=== PATIENT | female | born 1960 | race Caucasian/White ===

== ENCOUNTER 2021-01-14 08:07 | Outpatient (CLI) | payer SELFPAY ==
[2021-01-14] VITALS (8 sets, daily range): BP systolic 97–112; BP diastolic 57–73; PULSE 66–93; RESP 16–18; TEMP 36.7–37.1; O2SAT 91–95
== END 2021-01-14 10:40 | disposition home or self-care (01) ==
PROVIDERS: PCP Nurse Practitioner Family; Visit Provider Nurse Practitioner Family
DX: U07.1 COVID-19 (principal)
CPT/HCPCS: 96365

== ENCOUNTER → 2022-10-25 12:09 | Outpatient (CLI) | payer SELFPAY ==
--- NOTE | 2022-10-25 12:31 | XR_ITS ---
FINAL REPORT CLINICAL HISTORY: LT upper ARM PAIN. injury on sunday, fall tried to catch herself. COMPARISON: None FINDINGS: Two views of the left humerus were obtained. There is no acute fracture or dislocation. There is mild AC joint and mild glenohumeral joint degenerative change. There is no acute soft tissue abnormality. IMPRESSION: Degenerative change without acute abnormality identified. Reviewed, Interpreted and Dictated by Kevin Melissa III, MD Transcribed by My [facility] Authenticated and [facility]
== END ==
PROVIDERS: PCP Family Medicine; Visit Provider Family Medicine
DX: M79.602 Pain in left arm (principal)
CPT/HCPCS: 73060